=== PATIENT | female | born 1970 | race Caucasian/White ===

== ENCOUNTER → 2018-07-08 | Outpatient (CLI) | payer OTHER | LOC: FIMAGING 08:09 | PROVIDERS: ATTEND Family Medicine | DX: Z12.31 Encounter for screening mammogram for malignant neoplasm of breast (principal) ==

== ENCOUNTER → 2018-07-21 | Outpatient (CLI) | payer OTHER | LOC: FIMAGING 13:42 | PROVIDERS: ATTEND Family Medicine | DX: R92.8 Other abnormal and inconclusive findings on diagnostic imaging of breast (principal) ==

== ENCOUNTER 2018-12-30 11:12 | Emergency (ER) | payer OTHER ==
[2018-12-30] MEDS ORDERED: NS 1,000 ML IV ONE (11:26)
--- NOTE | 2018-12-30 11:26 | EDPHY ---
H & P Stated Complaint: L shoulder pain Time Seen by Provider: 12/30/18 11:22 HPI/ROS: HPI: This is a 48-year-old female who presents with Chief Complaint: Dizziness, left shoulder and left hip pain Location: Body Quality: Dizziness, pain Duration: 40 min prior to arrival Signs and Symptoms: no shortness of breath at rest, no shortness of breath on exertion, no cough, no chest pain, + palpitations, no lower extremity edema, no wheezing, no orthopnea, no paroxysmal nocturnal dyspnea, no fever, no injury/ trauma, no hemoptysis, no carpal pedal spasms Timing: Acute, constant, lasting approximately 20-30 minutes Severity: [id number] Context: Patient was driving down the [place] for approximately 40 min when she started to developed dizziness described as lightheadedness and left shoulder pain at the exact same time as left hip pain that radiated down the back of her leg into her knee. She reports that she felt like her heart was racing and complained of palpitations. She reports that she travels a lot for work and is under considerable stress. She has not ate or drank anything today. Last TSH level was performed 2 weeks ago and is followed by her primary care provider. Patient reports that 3-5 times per week she wakes up right hip discomfort and lower back pain that radiates into her right leg but has never had any imaging performed. Denies any recent trauma or injury. No fever and no recent upper respiratory symptoms. Denies chest pain, shortness of breath, lower extremity edema, calf pain. Denies urinary symptoms including no dysuria, urinary hesitancy, urinary frequency. Modifying Factors: None Comment: ROS: A comprehensive 10 system review of systems is otherwise negative aside from elements mentioned in the history of present illness. MEDICAL/SURGICAL/SOCIAL HISTORY: Medical history: Hypothyroidism Surgical history: Denies Social history: Employed. Never smoked. CONSTITUTIONAL: Overweight but nontoxic-appearing polite and cooperative female , awake and alert, no obvious distress HEENT: Atraumatic and normocephalic, PERRL, EOMI. Nares patent; no rhinorrhea; no nasal mucosal edema. Tympanic membranes clear. Oropharynx clear, no exudate and moist pink mucosa. Airway patent. No lymphadenopathy. No meningismus. No carotid bruits. Cardiovascular: Normal S1/S2, regular rate, regular rhythm, without murmur rub or gallop. PULMONARY/CHEST: Symmetrical and nontender. Clear to auscultation bilaterally. Good air movement. No accessory muscle usage. ABDOMEN: Soft, nondistended, nontender, no rebound, no guarding, no peritoneal signs, no masses or organomegaly. No CVAT. BACK: No midline tenderness, no paraspinous spasm, deep tendon reflexes 2/2, no pain with straight leg raise, No foot drop. Achilles reflexes are equal bilaterally. Able to walk on heels and toes without difficulty. EXTREMITIES: 2/2 pulses, strength 5/5, bilateral HIP: Flexion to 125, extension to 115, hyper extension to 15, abduction to 45. Pain with internal rotation and external rotation. Mild tenderness over greater trochanter. no deformities, no clubbing, no cyanosis or edema. NEUROLOGICAL: no focal neuro deficits. GCS 15. Cranial nerves 2-12 grossly intact. SKIN: Warm and dry, no erythema. no rash. Good capillary refill. Source: Patient Exam Limitations: No limitations - Personal History Current Tetanus/Diphtheria Vaccine: No Current Tetanus Diphtheria and Acellular Pertussis (TDAP): No - Medical/Surgical History Hx Asthma: No Hx Chronic Respiratory Disease: No Hx Diabetes: No Hx Cardiac Disease: No Hx Renal Disease: No Hx Cirrhosis: No Hx Alcoholism: No Hx HIV/AIDS: No Hx Splenectomy or Spleen Trauma: No Other PMH: hypothyroid - Social History Smoking Status: Never smoked Constitutional: Initial Vital Signs Temperature (C) 37.4 C 12/30/18 11:16 Heart Rate 92 12/30/18 11:16 Respiratory Rate 16 12/30/18 11:16 Blood Pressure 168/107 H 12/30/18 11:16 O2 Sat (%) 95 12/30/18 11:16 O2 Delivery Mode Room Air Allergies/Adverse Reactions: No Known Allergies Allergy (Unverified 12/30/18 11:16) Home Medications: Medication Instructions Recorded Levothyroxine 12/30/18 Medical Decision Making - Diagnostics EKG Interpretation: 12 lead EKG: Indication: Dizziness Rhythm: Normal sinus rhythm, rate of 85 beats per minute Gibson: Normal Intervals: Normal QRS: Normal ST segments: Nonspecific changes T segments: Inverted T-wave in V2 INTERPRETATION: No acute ischemic changes The 12 lead EKG was interpreted by myself and with attending. Imaging Results: Imaging Impressions Lumbar Spine X-Ray 12/30/18 11:27 Impression: Degenerative disk disease at L5-S1. 2. AP Pelvis History: Left hip pain Findings: There is mild hypertrophic change of each anterior superior iliac crest. The patient has congenitally short acetabuli. Both femoral necks are congenitally under tubulated. The femoral heads are normally located. The hip joint cartilage spaces are symmetric and normal. There is no soft tissue calcification or ossification. There is no sclerosis, subcortical cyst formation , spurring or erosive change. The SI joints and pubic symphysis look normal. There is no evidence for ischemic necrosis. 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 Pelvis X-Ray 12/30/18 11:27 Impression: Degenerative disk disease at L5-S1. 2. AP Pelvis History: Left hip pain Findings: There is mild hypertrophic change of each anterior superior iliac crest. The patient has congenitally short acetabuli. Both femoral necks are congenitally under tubulated. The femoral heads are normally located. The hip joint cartilage spaces are symmetric and normal. There is no soft tissue calcification or ossification. There is no sclerosis, subcortical cyst formation , spurring or erosive change. The SI joints and pubic symphysis look normal. There is no evidence for ischemic necrosis. 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 ED Course/Re-evaluation: Vital signs reviewed and shows elevated blood pressure upon arrival. Placed on cardiac technologist. IV access, laboratory studies, urinalysis, EKG, lumbar sacral x-rays, pelvic x- rays ordered Given 1 L normal saline 1140: EKG my read shows no acute ischemic changes, no arrhythmias, no heart block. 1208: Notified by tech that troponin 0.01 Urinalysis is unremarkable. 1215: Laboratory studies reviewed. No signs of leukocytosis/anemia/platelet dysfunction/SHELLEY/elevated LFTs/electrolyte imbalance/VTE. Lumbosacral x-rays my read show degenerative changes and stenosis at the L5-S1. Hip x-ray shows shortened acetabulum with concerns for labral derangement versus mild degenerative changes. 1220: Patient would benefit from a referral to Orthopedics. No signs of neurovascular compromise/tenting of skin/compartment syndrome/ extremities and joints examined above and below area of concern and are neurovascularly intact/CVA/TIA/acute coronary syndrome/sepsis. This patient was seen under the supervision of my secondary supervising physician. I evaluated care for this patient independently. Differential Diagnosis: Dizziness including but not limited to peripheral and central causes of vertigo , orthostatic causes including dehydration, and blood loss. - Data Points Laboratory Results: Laboratory Results 12/30/18 11:44 12/30/18 11:44 12/30/18 12/30/18 12/30/18 11:47 11:44 11:44 WBC RBC Hgb Hct MCV MCH MCHC RDW Plt Count MPV Neut % (Auto) Lymph % (Auto) Wal[place] % (Auto) Eos % (Auto) Baso % (Auto) Nucleat RBC Rel Count Absolute Neuts (auto) Absolute Lymphs (auto) Absolute Monos (auto) Absolute Eos (auto) Absolute Basos (auto) Absolute Nucleated RBC Immature Gran % Immature Gran # D-Dimer Sodium 135 mEq/L mEq/L (135-145) Potassium 4.3 mEq/L mEq/L (3.5-5.2) Chloride 101 mEq/L mEq/L (97-110) Carbon Dioxide 25 mEq/l mEq/l (22-31) Anion Gap 9 mEq/L mEq/L (6-14) BUN 11 mg/dL mg/dL (7-23) Creatinine 0.7 mg/dL mg/dL (0.6-1.0) Estimated GFR > 60 Glucose 100 mg/dL mg/dL (70-100) Calcium 9.3 mg/dL mg/dL (8.5-10.4) Total Bilirubin 0.4 mg/dL mg/dL (0.1-1.4) Conjugated Bilirubin 0.3 mg/dL mg/dL (0.0-0.5) Unconjugated Bilirubin 0.1 mg/dL mg/dL (0.0-1.1) AST 23 IU/L IU/L (14-46) ALT 46 IU/L IU/L (9-52) Alkaline Phosphatase 68 IU/L IU/L (38-126) POC Troponin I 0.01 ng/mL ng/mL (0.00-0.08) Total Protein 7.5 g/dL g/dL (6.3-8.2) Albumin 4.6 g/dL g/dL (3.5-5.0) Beta HCG, Qual NEGATIVE Urine Color Urine Appearance Urine pH Ur Specific [place] Urine Protein Urine Ketones Urine Blood Urine Nitrate Urine Bilirubin Urine Urobilinogen Ur Leukocyte Esterase Urine Glucose 12/30/18 12/30/18 12/30/18 11:44 11:44 11:32 WBC 5.99 10^3/uL 10^3/uL (3.80-9.50) RBC 4.71 10^6/uL 10^6/uL (4.18-5.33) Hgb 14.9 g/dL g/dL (12.6-16.3) Hct 44.3 % % (38.0-47.0) MCV 94.1 fL fL (81.5-99.8) MCH 31.6 pg pg (27.9-34.1) MCHC 33.6 g/dL g/dL (32.4-36.7) RDW 12.4 % % (11.5-15.2) Plt Count 352 10^3/uL 10^3/uL (150-400) MPV 9.2 fL fL (8.7-11.7) Neut % (Auto) 54.6 % % (39.3-74.2) Lymph % (Auto) 35.4 % % (15.0-45.0) Wal[place] % (Auto) 8.2 % % (4.5-13.0) Eos % (Auto) 1.2 % % (0.6-7.6) Baso % (Auto) 0.3 % % (0.3-1.7) Nucleat RBC Rel Count 0.0 % % (0.0-0.2) Absolute Neuts (auto) 3.27 10^3/uL 10^3/uL (1.70-6.50) Absolute Lymphs (auto) 2.12 10^3/uL 10^3/uL (1.00-3.00) Absolute Monos (auto) 0.49 10^3/uL 10^3/uL (0.30-0.80) Absolute Eos (auto) 0.07 10^3/uL 10^3/uL (0.03-0.40) Absolute Basos (auto) 0.02 10^3/uL 10^3/uL (0.02-0.10) Absolute Nucleated RBC 0.00 10^3/uL 10^3/uL (0-0.01) Immature Gran % 0.3 % % (0.0-1.1) Immature Gran # 0.02 10^3/uL 10^3/uL (0.00-0.10) D-Dimer 0.32 ug/mLFEU ug/mLFEU (0.00-0.50) Sodium Potassium Chloride Carbon Dioxide Anion Gap BUN Creatinine Estimated GFR Glucose Calcium Total Bilirubin Conjugated Bilirubin Unconjugated Bilirubin AST ALT Alkaline Phosphatase POC Troponin I Total Protein Albumin Beta HCG, Qual Urine Color YELLOW Urine Appearance CLEAR Urine pH 6.0 (5.0-7.5) Ur Specific [place] 1.008 (1.002-1.030) Urine Protein NEGATIVE (NEGATIVE) Urine Ketones NEGATIVE (NEGATIVE) Urine Blood NEGATIVE (NEGATIVE) Urine Nitrate NEGATIVE (NEGATIVE) Urine Bilirubin NEGATIVE (NEGATIVE) Urine Urobilinogen NEGATIVE EU EU (0.2-1.0) Ur Leukocyte Esterase NEGATIVE (NEGATIVE) Urine Glucose NEGATIVE (NEGATIVE) Medications Given: Discontinued Medications Sodium Chloride (Ns) 1,000 mls @ 0 mls/hr IV EDNOW ONE; Wide Open PRN Reason: Protocol Stop: 12/30/18 11:27 Last Admin: 12/30/18 11:41 Dose: 1,000 mls Point of Care Test Results: Chemistry 12/30/18 11:47 POC Troponin I 0.01 ng/mL ng/mL (0.00-0.08) Departure - Departure Disposition: Home, Routine, Self-Care Clinical Impression: Lumbar degenerative disc disease, Degenerative tear of acetabular labrum Condition: Good Instructions: Degenerative Disc Disease (ED), Hip Pain (ED) Additional Instructions: Consume a minimum of 8-10 glasses of water or electrolyte fluid replacement drinks that include Gatorade, Powerade, Pedialyte. Please eat balanced meals at a minimum of 3 times daily. Do not skip meals. Follow-up with Orthopedics to discuss lower back pain and hip pain. Return to the ER immediately if you experience new or worsening pain, discoloration, numbness, tingling, or any other symptoms that concern you. Referrals: Brandon John MD [Primary Care Provider] - As per Instructions Brandon Gutierrez MD [Medical Doctor] - As per Instructions
[2018-12-30 11:53] LABS: PLATELET COUNT 352 10^3/uL (150-400)
[2018-12-30 12:53] VITALS: BP 148/95
== END 2018-12-30 12:53 | disposition home or self-care (01) ==
DX: M51.37 Other intervertebral disc degeneration, lumbosacral region (principal); M24.852 Other specific joint derangements of left hip, not elsewhere classified; Q65.89 Other specified congenital deformities of hip; M25.512 Pain in left shoulder; R42 Dizziness and giddiness; E86.9 Volume depletion, unspecified
CPT/HCPCS: 84484-ER